=== PATIENT | female | born 1990 | race Caucasian/White ===

== ENCOUNTER → 2016-12-01 | Outpatient (CLI) | payer MEDICAID, OTHER ==
[~2016-12-01] MED LIST: BENZ56AE2 TP; DOCU100C37 PO; HYDR-3812 PO; IBUP-1773 PO; PNV1TABL67 PO
--- NOTE | 2016-12-01 19:56 | Diagnostic Imaging Report ---
Ultrasound of the soft tissues of the left hip/pelvic area. INDICATION: Lump at the posterior aspect of the hip region. FINDINGS: The scanned area appears to be adjacent to the iliac crest region with no fluid collection or definite mass is seen. IMPRESSION: Negative study. If there is continued clinical concern, then evaluation with CT or MRI is suggested. Dictated by: Dictated on workstation # [id number]
== END ==
LOC: RAD 13:35
PROVIDERS: ATTEND Surgery
DX: R22.2 Localized swelling, mass and lump, trunk (principal)
CPT/HCPCS: 76999

== ENCOUNTER → 2017-04-11 | Day surgery (SDC) | payer OTHER ==
[~2017-04-11] VITALS: Ht 175.3 cm; Wt 87.1 kg
[~2017-04-11] MED LIST changes: +HURRICAINE EXT TUBE (BENZOCAINE) ONE; +HURRICAINE EXT TUBE (BENZOCAINE) XX PRN; +LACTATED RINGERS 1,000 ML IV STA; +MIDAZOLAM 2 MG/2 ML (VERSED) VIAL ONE; +PANT40TA2 PO; +PROPOFOL INJECTION 50 ML IV ONE; +SUCR1TAB36 PO
--- OUTSIDE RECORDS SUMMARY | 2017-04-11 09:06 | XMS REPORT | Continuity of Care Document ---
Author Author [facility] Address Unknown Phone Unavailable Allergies Active Description Code Type Severity Reaction Onset Reported/Identified Relationship to Patient Clinical Status Yes NKANo Known Allergies NKA Miscellaneous Allergy Unknown N/ A 12/22/2005 Yes Adderall 10 mg tablet Drug Allergy N/A N/A 08/12/2013 Yes Benzodiazepines Drug Allergy N/A N/A 08/12/2013 Yes hydrocodone Drug Allergy N/A N/A 08/12/2013 Yes No Known Drug Allergies [id number] Drug Allergy Unknown N/ A 04/04/2017 Medications Problems Date Dx Coded Attending Type Code Diagnosis Diagnosed By 04/25/2012 JOSE RADFORD DO 314.01 ADHD COMBINED 04/25/2012 314.01 ADHD COMBINED 04/25/2012 NELLI ZAZUETA APRN 314.01 ADHD COMBINED 04/25/2012 314.01 ADHD COMBINED 04/25/2012 JOSE RADFORD DO 314.01 ADHD COMBINED 04/25/2012 JOSE RADFORD DO 314.01 ADHD COMBINED 04/25/2012 314.01 ADHD COMBINED 08/31/2012 NELLI ZAZUETA APRN 724.5 BACK PAIN, GENERAL 08/31/2012 724.5 BACK PAIN, GENERAL 08/31/2012 JOSE RADFORD DO 724.5 BACK PAIN, GENERAL 08/31/2012 JOSE RADFORD DO 724.5 BACK PAIN, GENERAL 05/27/2015 Ot 569.42 05/27/2015 Ot 737.30 05/27/2015 SOBEIDA CHILEL MD Ot 737.30 05/27/2015 Ot 569.42 05/27/2015 Ot 737.30 05/27/2015 SOBEIDA CHILEL MD Ot 737.30 06/12/2015 KRISTA HOWELL DO Ot O36.63X0 06/12/2015 KRISTA HOWELL DO Ot Z3A.33 06/24/2015 KRISTA HOWELL DO Ot O36.63X0 06/24/2015 LYNDA GALVAN KRITSA C Ot Z3A.33 07/23/2015 Ot 569.42 07/23/2015 Ot 737.30 07/23/2015 RANJANA EPPERSON, SOBEIDA Tobias Ot 737.30 07/23/2015 ARINA HOWELL DOA C Ot O36.63X0 07/23/2015 LYNDA GALVAN KRISTA C Ot Z3A.33 07/25/2015 LYNDA GALVAN KRISTA C Ot O36.63X0 MATERNAL CARE FOR EXCESS GROWTH, T 07/25/2015 ARIAN HOWELL DOA C Ot O41.03X0 OLIGOHYDRAMNIOS, THIRD TRIMESTER, NOT AP 07/25/2015 ARIAN HOWELL DOA C Ot O70.1 SECOND DEGREE PERINEAL LACERATION DURING 07/25/2015 ARIAN HOWELL DOA C Ot Z37.0 SINGLE LIVE 07/25/2015 ARIAN HOWELL DOA C Ot Z3A.39 39 WEEKS GESTATION OF 05/16/2016 Ot 569.42 ANAL OR RECTAL PAIN 05/16/2016 Ot 737.30 IDIOPATHIC SCOLIOSIS 05/16/2016 RANJANA EPPERSON, SOBEIDA Tobias Ot 737.30 IDIOPATHIC SCOLIOSIS 05/16/2016 ARIAN HOWELL DOA C Ot O36.63X0 MATERNAL CARE FOR EXCESS GROWTH, T 05/16/2016 ARIAN HOWELL DOA C Ot Z3A.33 33 WEEKS GESTATION OF 05/18/2016 LYNDA GALVAN KRISTA C Ot N63 UNSPECIFIED LUMP IN BREAST 05/22/2016 HOWELL , KRISTA C Ot N63 UNSPECIFIED LUMP IN BREAST 12/01/2016 LYNDA GALVAN KRISTA C Ot N63 UNSPECIFIED LUMP IN BREAST 02/06/2017 Ot 569.42 ANAL OR RECTAL PAIN 02/06/2017 Ot 737.30 IDIOPATHIC SCOLIOSIS 02/06/2017 SBOEIDA CHILEL MD Ot 737.30 IDIOPATHIC SCOLIOSIS 02/06/2017 ARIAN HOWELL DOA C Ot O36.63X0 MATERNAL CARE FOR EXCESS GROWTH, T 02/06/2017 LYNDA GALVAN KRISTA C Ot Z3A.33 33 WEEKS GESTATION OF 02/06/2017 HOWELL KRISTA C Ot N63 UNSPECIFIED LUMP IN BREAST 02/06/2017 DURAN RUELAS DO Ot R22.2 LOCALIZED SWELLING, MASS AND LUMP, TRUNK 04/05/2017 DURAN RUELAS DO Ot R10.13 EPIGASTRIC PAIN 04/05/2017 DURAN RUELAS DO Ot R10.84 GENERALIZED ABDOMINAL PAIN 04/05/2017 DURAN RUELAS DO Ot Z01.818 ENCOUNTER FOR OTHER PREPROCEDURAL EXAMIN Procedures Code [place] [address] XRAY THORACIC SPINE 2 VIEWS 08/31/2012 14212 XRAY THORACIC SPINE 2 VIEWS 08/31/2012 87825 URINE DRUG SCREEN (IN-HOUSE) 08/12/2013 37825 [employer] 2014 0UQGXZZ REPAIR VAGINA, EXTERNAL APPROACH 07/24/2015 27Y1UIL DELIVERY OF PRODUCTS OF CONCEPTION, EXTE 07/24/2015 0N639TB INTRODUCTION OF OTH HORMONE INTO PERIPH 07/24/2015 Results Encounters ACCT No. Visit Date/Time Discharge Status Pt. Type Provider Facility Loc./Unit Complaint [id number] 07/07/2014 10:26:00 07/07/2014 23: 59:59 CLS Outpatient JOSE RADFORD DO [id number] 08/12/2013 16:04:00 08/12/2013 23: 59:59 CLS Outpatient JOSE RADFORD DO [id number] 08/31/2012 09:28:00 08/31/2012 23: 59:59 CLS Outpatient NELLI ZAZUETA APRN [id number] 07/18/2012 10:59:00 07/18/2012 23: 59:59 CLS Outpatient [id number] 05/12/2012 09:37:00 05/12/2012 23: 59:59 [place] [id number] 04/25/2012 13:23:00 04/25/2012 23: 59:59 CLS Outpatient [id number] 09/27/2012 13:21:00 Document Registration [id number] 04/04/2017 05:50:00 2016 11:07:00 DIS Outpatient DURAN RUELAS DO [facility] PREOP EGD [id number] 12/05/2016 15:30:00 2016 23:59:59 CLS Preadmit DURAN RUELAS DO [facility] RAD R22.2 [id number] 12/01/2016 13:35:00 2016 23:59:59 CLS Outpatient DURAN RUELAS DO [facility] RAD BACK MASS [id number] 05/16/2016 14:01:00 2015 23:59:59 CLS Outpatient KRISTA HOWELL DO [facility] RAD BREAST LUMP ON RT SIDE AT 9 O'CLOCK POSITION [id number] 07/23/2015 07:55:00 2015 17:00:00 DIS Inpatient KRISTA HOWELL DO [facility] LDRP INDUCTION [id number] 05/27/2015 12:05:00 2014 23:59:59 CLS Outpatient KRISTA HOWELL DO [facility] RAD LARGE FOR GEST AGE [id number] 03/11/2013 11:39:00 2012 23:59:59 CLS Outpatient SOBEIDA CHILEL MD [facility] RAD SCOLIOSIS [id number] 04/11/2017 08:45:00 PEN Preadmit DURAN RUELAS DO [facility] ENDO EPIGASTRIC ABDOMINAL PAIN [id number] 04/04/2017 12:08:00 Document Registration [id number] 08/31/2012 10:42:00 Document Registration [id number] 07/02/2009 06:32:00 Document Registration
--- NOTE | 2017-04-11 09:14 | Progress Note-Pre Operative ---
Pre-Operative Progress Note H&P Reviewed The H&P was reviewed, patient examined and no changes noted. Date Seen by Provider: Apr 11, 2017 Time Seen by Provider: 09:14 Date H&P Reviewed: Apr 11, 2017 Time H&P Reviewed: 09:14 Pre-Operative Diagnosis: epigastric abdominal pain. DURAN RUELAS DO Apr 11, 2017 09:14
--- NOTE | 2017-04-11 09:39 | Progress Note-Post Operative ---
Post-Operative Progess Note Surgeon (s)/Painter Helper (s) Surgeon DURAN RUELAS DO Painter Helper: na Pre-Operative Diagnosis epigastric abdominal pain. Post-Operative Diagnosis mucosal change antrum, hiatal hernia Procedure & Operative Findings Date of Procedure 04/11/17 Procedure Performed/Findings egd c biopsy antrum Anesthesia Type per aircraft layout worker Estimated Blood Loss Estimated blood loss (mL): none Specimens/Packing Specimens Removed antrum DURAN RUELAS DO Apr 11, 2017 09:39
--- NOTE | 2017-04-11 09:41 | Discharge Inst-Simple/Standard ---
Discharge Inst-Standard Discharge Medications New, Converted or Re-Newed RX: RX on Chart Patient Instructions/Follow Up Plan of Care/Instructions/FU: 2 weeks Alon Activity as Tolerated: Yes Discharge Diet: Regular Diet (small frequent meals) DURAN RUELAS DO Apr 11, 2017 09:41
[2017-04-11 09:45] VITALS: BP 94/62
[2017-04-11 10:22] VITALS: BP 103/68
--- NOTE | 2017-04-11 14:14 | OPERATIVE REPORT ---
DATE OF SERVICE: 04/11/2017 PREOPERATIVE DIAGNOSIS: Epigastric abdominal pain. POSTOPERATIVE DIAGNOSIS: Mucosal change , small hiatal hernia. PROCEDURE: EGD with biopsy of the antrum. SURGEON: Duran Chi DO ANESTHESIA: Per AGRICULTURAL COMMODITIES INSPECTOR. ESTIMATED BLOOD LOSS: None. COMPLICATIONS: None. INDICATIONS: The patient is a 26-year-old female, who has been having some epigastric abdominal pain. She understands risks and benefits of procedure and wished to proceed with the procedure. Consent was signed and on the chart. DESCRIPTION OF PROCEDURE: The patient was taken to the endoscopy suite, placed in left lateral recumbent position. Timeout was performed. Once anesthetic effect placed, scope was inserted in mouth, down the esophagus, stomach and into the duodenum without difficulty. There were no polyps, masses or ulcerations within the duodenum. The scope was slowly retracted back into the stomach where it was further insufflated. Some slight mucosal changes of the antrum were present. Biopsy of this area was obtained. The scope was retroflexed and also noting a small hiatal hernia. No other pathology was noted. Scope was returned to its normal position, slowly withdrawn to the distal esophagus, which had normal appearance. There were no polyps, mass or ulcerations. The scope was slowly retracted until completely removed, noting no other pathology. RECOMMENDATIONS: The patient will be started on Protonix 40 mg daily and Carafate 1 gram four times a day. We will follow up on biopsies in approximately 2 weeks to see how she is doing at that time. Job ID: [id number] DocumentID: [id number] Dictated Date: 04/11/2017 09:43:59 Gas Plant Technician Date: 04/11/2017 14:13:48 Dictated By: DURAN CHI DO
== END | disposition home or self-care (01) ==
LOC: ENDO 08:52
PROVIDERS: ATTEND Surgery
DX: R10.13 Epigastric pain (principal); K31.9 Disease of stomach and duodenum, unspecified; K44.9 Diaphragmatic hernia without obstruction or gangrene; Z87.891 Personal history of nicotine dependence
CPT/HCPCS: 84703; 88305

== ENCOUNTER → 2021-05-10 | Outpatient (CLI) | payer MEDICAID ==
[~2021-05-10] MED LIST changes: +ACHD5005 PO; -HURRICAINE EXT TUBE (BENZOCAINE) ONE; -HURRICAINE EXT TUBE (BENZOCAINE) XX PRN; -HYDR-3812 PO; -LACTATED RINGERS 1,000 ML IV STA; -MIDAZOLAM 2 MG/2 ML (VERSED) VIAL ONE; -PROPOFOL INJECTION 50 ML IV ONE
--- NOTE | 2021-05-10 17:52 | Diagnostic Imaging Report ---
INDICATION: Supervision of normal . Anatomy survey. TECHNIQUE: Multiple real-time grayscale images were obtained over the gravid uterus. COMPARISON: None FINDINGS: A single live intrauterine gestation is visualized in breech presentation. The cervix is closed and measures 5.3 cm in length. heart tones measure 155 bpm. The NATHANAEL is visually normal although no measurements were provided by the director [employer]. The placenta is posterior and low-lying. The adnexa had a normal appearance without evidence of mass or free fluid. The stomach, ventricles, cord insertion, three-vessel cord, and four-chamber heart are visualized and have a normal appearance. The kidneys and spine are suboptimally evaluated due to position. Biometrical measurements are as follows: Biparietal 4.42 cm, age 19 weeks 3 days. Head circumference 17.88 cm, age 20 weeks 3 days. Abdominal circumference 16.46 cm, age 21 weeks 4 days. Femur length 3.49 cm, age 21 weeks 1 days. Sonographic estimate age: 20 weeks 5 days. Sonographic estimated date of delivery: 09/22/2021. Estimated Weight: 400 gm (+/- 59 gm). LMP percentile: 98%. heart rate: 155 beats per minute. number: 1 of 1. IMPRESSION: 1. Single live intrauterine gestation measuring 20 weeks 5 days with an estimated due date of 09/22/2021. These are within range with the clinical dates. 2. Suboptimal evaluation of the kidneys and spine due to position. The remainder of the anatomy is unremarkable. Recommend follow-up, as indicated. 3. Breech presentation. Dictated by: Dictated on workstation # [id number]
== END ==
LOC: RAD 14:30
PROVIDERS: ATTEND Obstetrics & Gynecology
DX: Z34.92 Encounter for supervision of normal pregnancy, unspecified, second trimester (principal); Z3A.20 20 weeks gestation of pregnancy
CPT/HCPCS: 76805

== ENCOUNTER → 2021-06-11 | Outpatient (CLI) | payer MEDICAID ==
--- NOTE | 2021-06-11 16:02 | Diagnostic Imaging Report ---
INDICATION: Follow-up anatomy. TECHNIQUE: Multiple real-time grayscale images were obtained over the gravid uterus. COMPARISON: 05/10/2021. FINDINGS: There is a single live fetus in breech presentation. heart rate was recorded at 163 bpm. Placenta is posterior and continues to be low lying. Placenta tip to the internal os is approximate 2.3 cm. Amniotic fluid volume appears normal. Cervical length is 2.8 cm. There continues to be suboptimal evaluation of the kidneys. IMPRESSION: Single live IUP in a breech position. Placenta continues to be low lying. kidneys are suboptimally visualized due to position. Dictated by: Dictated on workstation # [id number]
== END ==
LOC: RAD 12:42
PROVIDERS: ATTEND Obstetrics & Gynecology
DX: O44.52 Low lying placenta with hemorrhage, second trimester (principal); Z3A.00 Weeks of gestation of pregnancy not specified
CPT/HCPCS: 76816

== ENCOUNTER → 2021-06-15 | Outpatient (CLI) | payer MEDICAID ==
--- NOTE | 2021-06-15 15:12 | Diagnostic Imaging Report ---
INDICATION: Followup anatomy and placenta. FINDINGS: There is a single live fetus in a transverse presentation with the head to the maternal right. The heart rate was recorded at 160 BPM. The placenta is posterior. The placental tip to the internal cervical os is approximately 4.8 cm. The amniotic fluid volume is normal. The kidneys were visualized today. The cervical length is 5.1 cm. IMPRESSION: Single live IUP in a transverse presentation. There is no evidence of placenta previa or low-lying placenta on today's study. kidneys are unremarkable. Dictated by: Dictated on workstation # [id number]
== END ==
LOC: RAD 12:30
PROVIDERS: ATTEND Obstetrics & Gynecology
DX: O44.42 Low lying placenta NOS or without hemorrhage, second trimester (principal); Z3A.00 Weeks of gestation of pregnancy not specified
CPT/HCPCS: 76817

== ENCOUNTER → 2021-08-06 | Outpatient (CLI) | payer MEDICAID ==
--- NOTE | 2021-08-06 18:14 | Diagnostic Imaging Report ---
INDICATION: patient, large for dates. TECHNIQUE: Multiple real-time grayscale images were obtained over the gravid uterus. COMPARISON: 05/10/2021. FINDINGS: A single live intrauterine fetus is seen measuring 34 weeks 5 days in size. Sonographic EDC is 09/12/2021. The fetus is in cephalic presentation. Amniotic fluid index is 15.87 cm. Placenta is posterior with no evidence of previa. The distance from the placental tip to the internal os was 9.4 cm. heart rate was 158 bpm. Compared to the prior study, the growth has been normal. The fetus is actually about a week and a half larger than expected from previous dates, this may be within variation of late . Consider continued follow-up, if warranted. A full survey was not performed, kidneys were not well visualized on the prior study but were well seen on today's study and appear unremarkable. Adnexa were not well visualized. Biometrical measurements are as follows: Biparietal 8.74 cm, age 35 weeks 3 days. Head circumference 31.31 cm, age 35 weeks 1 days. Abdominal circumference 30.69 cm, age 34 weeks 5 days. Femur length 6.39 cm, age 33 weeks 1 days. Sonographic estimate age: 34 weeks 5 days. Sonographic estimated date of delivery: 09/12/2021. Estimated Weight: 2397 gm (+/- 350 gm). LMP percentile: 96%. heart rate: 158 beats per minute. number: 1 of 1. IMPRESSION: Single live intrauterine fetus measuring 34 weeks 5 days in size, this is about 10 days larger than expected from regional dates but may be within variation of late . Consider continued follow-up, as clinically warranted. kidneys appear normal on today's study, there were not well seen on the prior study. Dictated by: Dictated on workstation # [id number]
== END ==
LOC: RAD 15:15
PROVIDERS: ATTEND Obstetrics & Gynecology
DX: O34.593 Maternal care for other abnormalities of gravid uterus, third trimester (principal); Z3A.34 34 weeks gestation of pregnancy
CPT/HCPCS: 76805

== ENCOUNTER → 2022-11-21 | Outpatient (CLI) | payer MEDICAID ==
[~2022-11-21] MED LIST changes: +BARIUM for suspension 96% w/w (Vanilla Silq Medium Density) PO ONE; +BARIUM for suspension 98% w/w (Vanilla Silq High Density) PO ONE; +BENZ78AE5 TP; +DIBU30OI TOP; +IBUP-844 PO
--- NOTE | 2022-11-21 12:18 | Diagnostic Imaging Report ---
INDICATION: Pre-gastric sleeve workup. Patient ingested effervescent crystals as well as thin and thick barium and imaging of esophagus, stomach and proximal small bowel was performed. Total of 40 seconds of fluoroscopic time was utilized. 34 images were obtained. Preliminary radiograph of the abdomen is unremarkable. There are surgical clips of the gallbladder fossa. The esophagus has a smooth contour. No mass or stricture is identified. No hiatal hernia or gastroesophageal reflux was demonstrated. The stomach has a normal configuration. There is prompt emptying into the small bowel. The duodenal bulb is without deformity. Proximal small bowel is unremarkable. IMPRESSION: Unremarkable air-contrast upper GI study. Dictated by: Dictated on workstation # [id number]
== END ==
LOC: RAD 09:08
PROVIDERS: ATTEND Surgery
DX: Z01.818 Encounter for other preprocedural examination (principal); K21.9 Gastro-esophageal reflux disease without esophagitis
CPT/HCPCS: 74246

== ENCOUNTER → 2023-05-04 | Outpatient (CLI) | payer MEDICAID ==
[~2023-05-04] MED LIST changes: -BARIUM for suspension 96% w/w (Vanilla Silq Medium Density) PO ONE; -BARIUM for suspension 98% w/w (Vanilla Silq High Density) PO ONE
[2023-05-04 18:50] LABS: HEMATOCRIT 41 % (35-52); HEMOGLOBIN 13.6 g/dL (11.5-16.0); MEAN CORPUSCULAR HEMOGLOBIN 30 pg (25-34); MEAN CORPUSCULAR HGB CONC 33 g/dL (32-36); MEAN CORPUSCULAR VOLUME 90 fL (80-99); MEAN PLATELET VOLUME 10.3 fL (9.0-12.2); PLATELET COUNT 258 10^3/uL (130-400)
[2023-05-04 19:07] LABS: ALBUMIN 4.5 GM/DL (3.2-4.5)
[2023-05-04 19:09] LABS: CALCIUM 9.5 MG/DL (8.5-10.1)
[2023-05-04 19:10] LABS: TOTAL PROTEIN 7.6 GM/DL (6.4-8.2)
[2023-05-04 19:12] LABS: BILIRUBIN,TOTAL 0.3 MG/DL (0.1-1.0)
[2023-05-04 19:14] LABS: CREATININE SERUM 0.87 MG/DL (0.60-1.30)
== END ==
LOC: LAB 18:34
PROVIDERS: ATTEND Surgery
DX: D64.9 Anemia, unspecified (principal); R53.1 Weakness; R53.83 Other fatigue
CPT/HCPCS: 36415; 80053; 82607; 85027